=== PATIENT | male | born 1985 | race Caucasian/White ===

== ENCOUNTER 2023-03-11 23:57 | Emergency (ER) | payer OTHER, SELFPAY ==
[2023-03-11 23:59] VITALS: BP 134/90; PULSE 90; RESP 16; TEMP 36.4; O2SAT 98; BMI 25.1
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
[2023-03-12 00:06] VITALS: BP 126/83
--- NOTE | 2023-03-12 00:11 | CT_ITS ---
The [address] [address] Patient Name: EMILY FONSECA MRN: [id number] date: 1985 Sex: M Assigned Patient Location: ER Current Patient Location: .[facility] Accession/Order Number: [id number] Exam Date: 03/12/2023 00:55 Report Date: 03/12/2023 01:51 At the request of: CARMELINA DILL Procedure: CT head/brain wo con EXAM: CT head/brain wo con, CT cervical spine wo con HISTORY: chi COMPARISON: CT brain 08/30/2014, MRI brain 02/25/2026 TECHNIQUE: Axial CT scans through the head and cervical spine were obtained without IV contrast administration. Dose reduction techniques were achieved by using: automated exposure control and/or adjustment of mA and /or kV according to patient size and/or use of iterative reconstruction technique. CT BRAIN FINDINGS: There is no evidence of acute intracranial hemorrhage or abnormal extra-axial fluid collection. No mass effect or midline shift is seen. There is no evidence of large acute territorial infarction. There is no hydrocephalus. No definite acute fracture is identified. Soft tissues are unremarkable. The visualized orbits show no abnormal mass. The visualized paranasal sinuses show no air-fluid level. Mild mucosal thickening are noted at bilateral sphenoid sinuses and ethmoid air cells. Mastoid air cells are clear. CT/CT head/brain wo con IMPRESSION: No CT evidence of acute intracranial abnormality. CT CERVICAL SPINE FINDINGS: No acute fracture or posttraumatic malalignment is seen. There is straightening of the normal cervical lordotic curvature. There are mild spurring at C4-6 levels. Mild disc space narrowing is seen at C5-6 with small disc osteophyte complex and left-sided mild neural foraminal narrowing at this level. No central spinal canal stenosis is seen. The prevertebral soft tissue space appears normal. Visualized neck shows no adenopathy. There are low-attenuation nodular areas in bilateral thyroid lobes. Visualized lung apices are clear. IMPRESSION: No acute fracture or posttraumatic malalignment. Mild degenerative changes of cervical spine, as described. Straightening of cervical lordosis, may be related to positioning or muscle spasm. Incidental low-attenuation nodular areas in bilateral thyroid lobes. Correlation with nonemergent thyroid ultrasound is suggested. Electronically authenticated by: ADELA ROMERO Date: 03/12/2023 01:51
--- NOTE | 2023-03-12 00:11 | CT_ITS ---
[address] [address] Patient Name: EMILY FONSECA MRN: [id number] date: 1985 Sex: M Assigned Patient Location: ER Current Patient Location: [facility] Accession/Order Number: [id number] Exam Date: 03/12/2023 00:55 Report Date: 03/12/2023 01:51 At the request of: CARMELINA DILL Procedure: CT cervical spine wo con EXAM: CT head/brain wo con, CT cervical spine wo con HISTORY: chi COMPARISON: CT brain 08/30/2014, MRI brain 02/25/2026 TECHNIQUE: Axial CT scans through the head and cervical spine were obtained without IV contrast administration. Dose reduction techniques were achieved by using: automated exposure control and/or adjustment of mA and /or kV according to patient size and/or use of iterative reconstruction technique. CT BRAIN FINDINGS: There is no evidence of acute intracranial hemorrhage or abnormal extra-axial fluid collection. No mass effect or midline shift is seen. There is no evidence of large acute territorial infarction. There is no hydrocephalus. No definite acute fracture is identified. Soft tissues are unremarkable. The visualized orbits show no abnormal mass. The visualized paranasal sinuses show no air-fluid level. Mild mucosal thickening are noted at bilateral sphenoid sinuses and ethmoid air cells. Mastoid air cells are clear. CT/CT cervical spine wo con IMPRESSION: No CT evidence of acute intracranial abnormality. CT CERVICAL SPINE FINDINGS: No acute fracture or posttraumatic malalignment is seen. There is straightening of the normal cervical lordotic curvature. There are mild spurring at C4-6 levels. Mild disc space narrowing is seen at C5-6 with small disc osteophyte complex and left-sided mild neural foraminal narrowing at this level. No central spinal canal stenosis is seen. The prevertebral soft tissue space appears normal. Visualized neck shows no adenopathy. There are low-attenuation nodular areas in bilateral thyroid lobes. Visualized lung apices are clear. IMPRESSION: No acute fracture or posttraumatic malalignment. Mild degenerative changes of cervical spine, as described. Straightening of cervical lordosis, may be related to positioning or muscle spasm. Incidental low-attenuation nodular areas in bilateral thyroid lobes. Correlation with nonemergent thyroid ultrasound is suggested. Electronically authenticated by: ADELA ROMERO Date: 03/12/2023 01:51
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
[2023-03-12 00:45] LABS: Eosinophils Absolute Auto 0.1 10^3/uL (0.0-0.7); Eosinophils Percent Auto 3.2 % (0.9-7.0); Hemoglobin 14.3 g/dL (14.0-18.0); Lymphocytes Absolute Auto 1.4 10^3/uL (1.2-3.8); Lymphocytes Percent Auto 43.2 % (20.5-60.0); Mean Corpuscular Hemoglobin 28.1 pg (25.9-34.0); Mean Corpuscular Volume 82.7 fL (80.0-94.0); Mean Platelet Volume 9.8 fL (9.5-13.5); Monocytes Absolute Auto 0.2 10^3/uL (0.3-0.8); Monocytes Percent Auto 7.6 % (1.7-12.0); Neutrophils Absolute Auto 1.4 10^3/uL (1.4-6.5); Platelet Count 91 10^3/uL (150-450); Red Blood Count 5.08 10^6/uL (4.70-6.10); Red Cell Distribution Width 13.5 % (11.0-15.0); White Blood Count 3.2 10^3/uL (4.0-11.0)
[2023-03-12 00:53] LABS: Anion Gap 11.6; BUN Creatinine Ratio 21.5; Carbon Dioxide 29.2 mmol/L (21.0-32.0); Chloride 101 mmol/L (98-107); Estimated GFR (African America >60 (>=60); Estimated GFR (Non-African Ame >60 (>=60); Glucose 109 mg/dL (74-106); Potassium 3.8 mmol/L (3.5-5.1); Sodium 138 mmol/L (136-145)
[2023-03-12] MEDS: BACITRACIN 0.9 GM PACKET 1 PACKET TOPICAL (01:12)
[2023-03-12 01:30] VITALS: BP 114/76
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
[2023-03-12 01:43] LABS: Ethanol <3 mg/dL
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
[2023-03-12 02:01] VITALS: BP 157/69
[2023-03-12 02:30] VITALS: BP 132/87
--- NOTE | 2023-03-12 09:42 | ECG_ITS ---
The [facility] Test Date: 2023-03-12 Pat Name: EMILY FONSECA Department: Room: - Gender: Male [employer]: : 1985 Requested By: [id number] Order Number: [id number] Reading MD: CHRISTEN CORONA Measurements Intervals [place] Rate: 86 P: 77 CT: 164 QRS: 58 QRSD: 88 T: 49 QT: 358 QTc: 402 Interpretive Statements 1100 Sinus rhythm 9110 normal ECG No previous ECG available for comparison Electronically Signed On 03-13-2023 7:02:30 EDT by CHRISTEN CORONA
== END 2023-03-12 03:10 | disposition home or self-care (01) ==
PROVIDERS: Emergency Provider Emergency Medicine
DX: T40.601A Poisoning by unspecified narcotics, accidental (unintentional), initial encounter (principal); S80.812A Abrasion, left lower leg, initial encounter; S80.811A Abrasion, right lower leg, initial encounter; S90.30XA Contusion of unspecified foot, initial encounter; F17.210 Nicotine dependence, cigarettes, uncomplicated; Z79.899 Other long term (current) drug therapy; V19.3XXA Pedal cyclist (driver) (passenger) injured in unspecified nontraffic accident, initial encounter
CPT/HCPCS: 36415; 70450; 72125; 73630; 80048; 80320; 85025; 93005; 99285